=== PATIENT | female | born 1980 | race Caucasian/White ===

== ENCOUNTER 2020-01-09 13:32 | Emergency (ER) | payer SELFPAY ==
[~2020-01-09] VITALS: Ht 165.1 cm; Wt 54.4 kg
[2020-01-09 13:40] VITALS: BP 128/97
--- NOTE | 2020-01-09 13:44 | NUR ---
biba w c/o ALOC. Pt A & O x3, GCS 14/15, (3,5,6). pt reports that she smoked meth last night and was awake all night. pt c/o headache 09/14. pt denies use of etoh or other drugs. PERRL 3mm. Pt appears drowsy but is able to answer questions appropriately. BUE/BLE strength equal. No slurred speech or facial droop noted. pt in [facility]. bed in low position.
--- NOTE | 2020-01-09 13:46 | NUR ---
Note arthur in EDM - 01/09/20 at 1349 by [email or web address] 39 y/o female biba for altered level of consciousness. Pt was found laying on street, arousable to voice but appears lethargic. Pt admits to meth use yesterday. C/O mild hallucinations at this time. Pt resting with eyes closed arousable to voice. Presents slightly confused. History of bipolar but non compliant with medications medhx: bipolar
--- NOTE | 2020-01-09 14:18 | NUR ---
Dr Garcia examining pt
--- NOTE | 2020-01-09 14:50 | NUR ---
Patient discharged with v/s stable. Written and verbal after care instructions given and explained. Patient verbalized understanding. Ambulatory with steady gait. All questions addressed prior to discharge. Advised to follow up with PMD. Homeless food packet given to patient. Pt does not want homeless resource packet or bus pass.
[2020-01-09 14:51] VITALS: BP 128/97
== END 2020-01-09 14:50 | disposition home or self-care (01) ==
LOC: MED 13:32
DX: R40.4 Transient alteration of awareness (principal); F15.10 Other stimulant abuse, uncomplicated; Z02.89 Encounter for other administrative examinations
CPT/HCPCS: 99283